=== PATIENT | female | born 1975 | race Caucasian/White ===

== ENCOUNTER 2017-11-06 20:15 | Emergency (ER) | payer OTHER ==
[~2017-11-06] VITALS: Ht 167.6 cm; Wt 68.0 kg
[~2017-11-06 20:15] MED LIST: AMBIEN 5 MG TABL5 M1 PO; CIPRO500 M1 PO; HYDROCODONE-AP1 EAC6 PO; PYRIDIUM200 MG PO; ZOLOFT25 MG PO
[2017-11-06] MEDS ORDERED: ZANAFLEX4 MG PO (21:47)
[2017-11-06] MEDS ORDERED: IBUPROFEN 800800 M1 PO (21:47)
[2017-11-06] MEDS ORDERED: MEDROLDOSEPACK PO (21:47)
[2017-11-06 21:54] VITALS: BP 107/73
== END 2017-11-06 21:55 | disposition home or self-care (01) ==
LOC: M.ERS 20:15
DX: M54.16 Radiculopathy, lumbar region (principal); Z87.442 Personal history of urinary calculi

== ENCOUNTER → 2019-10-25 | Outpatient (CLI) | payer OTHER ==
[~2019-10-25] MED LIST changes: +IBUPROFEN 800800 M1 PO; +MEDROLDOSEPACK PO; +ZANAFLEX4 MG PO
== END ==
LOC: M.CT 11:19
PROVIDERS: ATTEND Family Medicine
DX: R07.82 Intercostal pain (principal); M54.2 Cervicalgia